=== PATIENT | male | born 1955 | race Caucasian/White ===

== ENCOUNTER 2017-03-26 07:59 | Emergency (ER) | payer BC ==
[2017-03-27] MEDS ORDERED: NORV5 PO (08:23)
[2017-03-27] MEDS ORDERED: [UNRECOGNIZED DRUG - REMARK] PO (08:25)
[2017-03-27] MEDS ORDERED: PRILO PO (08:26)
[2017-03-27] MEDS ORDERED: ASAB PO (08:27)
[2017-03-27] MEDS ORDERED: MULTI VITS PO (08:27)
[2017-04-20] MEDS ORDERED: VOLT75 PO (12:12)
[2017-04-20] MEDS ORDERED: T3 PO (12:12)
[2017-04-20] MEDS ORDERED: NEUR100 PO (12:13)
[2017-05-17] MEDS ORDERED: PRILO PO (15:00)
[2017-05-17] MEDS ORDERED: VOLT75 PO (15:01)
[2017-05-24] MEDS ORDERED: LIPITOR40 PO (11:57)
[2017-05-24] MEDS ORDERED: LOP25 PO (11:58)
[2017-05-24] MEDS ORDERED: COUMADIN4 MG PO (11:59)
[2017-05-24] MEDS ORDERED: OXYCOD PO (12:03)
== END 2017-03-26 09:10 | disposition home or self-care (01) ==
LOC: ER 07:59
DX: M25.532 Pain in left wrist (principal); F17.200 Nicotine dependence, unspecified, uncomplicated; I10 Essential (primary) hypertension; Z88.1 Allergy status to other antibiotic agents
CPT/HCPCS: 73110-LT; 99284; A9270-GY